=== PATIENT | female | born 1985 ===

== ENCOUNTER → 2020-10-01 | Outpatient (CLI) | payer OTHER | END | disposition home or self-care (01) | LOC: PRENATAL 10:30 | PROVIDERS: ATTEND Obstetrics & Gynecology Maternal & Fetal Medicine | DX: O35.0XX1 Maternal care for (suspected) central nervous system malformation in fetus, fetus 1 (principal); O35.3XX1 Maternal care for (suspected) damage to fetus from viral disease in mother, fetus 1; O98.512 Other viral diseases complicating pregnancy, second trimester; O99.891 Other specified diseases and conditions complicating pregnancy; O34.211 Maternal care for low transverse scar from previous cesarean delivery; Z36.89 Encounter for other specified antenatal screening; Z3A.24 24 weeks gestation of pregnancy ==

== ENCOUNTER → 2020-11-12 | Outpatient (CLI) | payer OTHER | END | disposition home or self-care (01) | LOC: PRENATAL 09:28 | PROVIDERS: ATTEND Obstetrics & Gynecology Maternal & Fetal Medicine | DX: O26.843 Uterine size-date discrepancy, third trimester (principal); O99.891 Other specified diseases and conditions complicating pregnancy; Z36.89 Encounter for other specified antenatal screening; Z3A.31 31 weeks gestation of pregnancy ==

== ENCOUNTER → 2020-12-11 | Outpatient (CLI) | payer OTHER | END | disposition home or self-care (01) | LOC: PRENATAL 09:30 | PROVIDERS: ATTEND Obstetrics & Gynecology Maternal & Fetal Medicine | DX: O26.843 Uterine size-date discrepancy, third trimester (principal); O99.891 Other specified diseases and conditions complicating pregnancy; Z36.89 Encounter for other specified antenatal screening; Z3A.35 35 weeks gestation of pregnancy ==

== ENCOUNTER 2020-12-23 08:45 | Inpatient (IN) | payer OTHER ==
[~2020-12-23] VITALS: Ht 160 cm; Wt 2.7 kg
[2020-12-26] MEDS ORDERED: PRENATAL TABLE1 EAC3 PO (08:58)
[2020-12-26] MEDS ORDERED: CELESTONE S6 MG/1 ML (11:12)
[2020-12-28] MEDS ORDERED: CODE1TAB37 PO (08:19)
[2020-12-28] MEDS ORDERED: IBUPROFEN800 MG PO (08:20)
== END 2020-12-28 14:59 | disposition home or self-care (01) | DRG 785 ==
LOC: O/R 12-26 08:32 → SURG-SUITE 12-26 08:32 → OB/GYN 12-26 08:45 → SURG-SUITE 12-26 15:34 → OB/GYN 12-26 17:45 → SURG-SUITE 12-28 14:59
PROVIDERS: ADMIT Obstetrics & Gynecology; ATTEND Obstetrics & Gynecology
PROC: 0UB70ZZ Excision of Bilateral Fallopian Tubes, Open Approach (ICD-10-PCS; 2020-12-26)
PROC: 4A1HXFZ Monitoring of Products of Conception, Cardiac Rhythm, External Approach (ICD-10-PCS; 2020-12-26)
PROC: 10D00Z0 Extraction of Products of Conception, High, Open Approach (ICD-10-PCS; principal; 2020-12-26 17:45)
DX: O65.5 Obstructed labor due to abnormality of maternal pelvic organs (principal); O34.211 Maternal care for low transverse scar from previous cesarean delivery; O34.03 Maternal care for unspecified congenital malformation of uterus, third trimester; Z37.0 Single live birth; Z3A.36 36 weeks gestation of pregnancy; Z30.2 Encounter for sterilization; N83.8 Other noninflammatory disorders of ovary, fallopian tube and broad ligament

== ENCOUNTER 2023-06-07 17:45 | Inpatient (IN) | payer OTHER ==
[~2023-06-07] VITALS: Ht 160 cm; Wt 72.6 kg
[~2023-06-07 17:45] MED LIST: CELESTONE S6 MG/1 ML; CODE1TAB37 PO; IBUPROFEN800 MG PO; PRENATAL TABLE1 EAC3 PO
== END 2023-06-10 15:56 | disposition home or self-care (01) | DRG 812 ==
LOC: OB/GYN 17:45
PROVIDERS: ADMIT Internal Medicine Hematology & Oncology; ATTEND Internal Medicine Hematology & Oncology
PROC: 30233N1 Transfusion of Nonautologous Red Blood Cells into Peripheral Vein, Percutaneous Approach (ICD-10-PCS; principal; 2023-06-08)
PROC: BU4CZZZ Ultrasonography of Uterus and Ovaries (ICD-10-PCS; 2023-06-09)
DX: D50.0 Iron deficiency anemia secondary to blood loss (chronic) (principal); Z20.822 Contact with and (suspected) exposure to COVID-19; N93.8 Other specified abnormal uterine and vaginal bleeding
CPT/HCPCS: 240

== ENCOUNTER 2023-06-25 08:48 | Inpatient (IN) | payer OTHER ==
[~2023-06-25] VITALS: Ht 160 cm; Wt 72.6 kg
[2023-06-25] MEDS ORDERED: MAXFE CAPLET1 EAC1 PO (09:41)
[2023-07-02] MEDS ORDERED: KETO10TA2 PO (09:04)
[2023-07-02] MEDS ORDERED: ACETAMINOPHEN-1 EAC2 PO (09:04)
== END 2023-07-02 14:41 | disposition home or self-care (01) | DRG 743 ==
LOC: O/R 07-01 05:40 → OB/GYN 07-01 05:40 → SURH 07-01 09:45 → OB/GYN 07-01 10:57 → SURH 07-01 21:15 → OB/GYN 07-02 14:41
PROVIDERS: ADMIT Obstetrics & Gynecology; ATTEND Obstetrics & Gynecology
PROC: 0UT7FZZ Resection of Bilateral Fallopian Tubes, Via Natural or Artificial Opening With Percutaneous Endoscopic Assistance (ICD-10-PCS; 2023-07-01)
PROC: 0TJB8ZZ Inspection of Bladder, Via Natural or Artificial Opening Endoscopic (ICD-10-PCS; 2023-07-01)
PROC: 0UT9FZZ Resection of Uterus, Via Natural or Artificial Opening With Percutaneous Endoscopic Assistance (ICD-10-PCS; principal; 2023-07-01 21:15)
DX: N80.03 Adenomyosis of the uterus (principal); N72 Inflammatory disease of cervix uteri; N81.11 Cystocele, midline; Z20.822 Contact with and (suspected) exposure to COVID-19